=== PATIENT | male | born 1960 | race Caucasian/White ===

== ENCOUNTER → 2017-05-07 15:36 | Outpatient (CLI) | payer OTHER, SELFPAY ==
[2017-05-07 16:51] LABS: Anion Gap 8 (5-15); BUN 12 mg/dL (7-18); BUN/Creat Ratio 10.8 RATIO (10-20); Calcium,Total 8.4 mg/dL (8.5-10.1); Chloride 107 mmol/L (98-107); Creatinine, Serum 1.11 mg/dL (0.70-1.30); EST Glomerular Filtration Rate 73 mL/min (>60); Est Glom Filt Rate - Afr Amer 88 mL/min (>60); Glucose 93 mg/dL (74-106); Sodium Level 141 mmol/L (136-145)
== END ==
PROVIDERS: Family Provider Family Medicine Geriatric Medicine; PCP Family Medicine Geriatric Medicine; Visit Provider Nurse Practitioner Acute Care
DX: R59.0 Localized enlarged lymph nodes (principal)
CPT/HCPCS: 36415; 80048

== ENCOUNTER → 2017-05-09 14:14 | Outpatient (CLI) | payer OTHER, SELFPAY ==
[2017-04-18 14:07] VITALS: BP 132/83; BMI 28.8
--- NOTE | 2017-05-09 14:15 | CT_ITS ---
STUDY: CT CHEST WITH CONTRAST REASON FOR EXAM: Male, 56 years old. Short of breath and left-sided chest pressure. Follow-up of pulmonary nodules. RADIATION DOSAGE (If Supplied By Facility): CTDIvol = ( 14.02 ) mGy, DLP = ( 500.35 ) mGycm TECHNIQUE: Transaxial imaging was performed following intravenous administration of 100 ml of Isovue 250 contrast material. Multiplanar coronal and sagittal images were reformatted. Individualized dose optimization techniques were used for this CT. COMPARISON: Prior chest CT exam of November 18, 2016, August 22, 2016 and April 04, 2016. FINDINGS: The lingular nodule measures 14 x 12 mm on axial image 73 series 4 appearing to be only slightly larger on direct [id number] comparison. Also appears increased in size on coronal and sagittal there is somewhat more lung opacification peripheral to the nodule. Imaging and more rounded. There is a persistent area of volume loss or retraction in the anterior right lower lobe and persistent chronic or atelectatic changes of the dependent right lower lobe and to a lesser extent the dependent left lower lobe. Small focal area of linear scarring in the anterior left lower lobe. Bullous emphysematous changes of the left lung apex. Negative for substantial pleural effusion. Normal heart and pericardium. Normal mediastinum. A left hilar lymph node has not changed significantly. Normal enhanced pulmonary arteries. Normal aorta arch and descending thoracic aorta. Mild degenerative changes of the thoracic spine. Prior left adrenal nodule not completely included in the [id number]. CT/Chest WITH Contrast IMPRESSION: 14 x 12 mm nodule of the lingula has modestly increased in size since the prior exam of November 18, 2016. There is a more remarkable increase in size since the initial exam of September 02, 2016. There also appears to be more distal/peripheral parenchymal change related to the nodule which is occurring in an area of retraction and distortion of the fissures. Persistent area of linear type atelectatic change in the anterior right lower lobe and to a lesser extent the anterior left lower lobe. Increased posterior atelectatic changes. Negative for pleural effusion. Stable left hilar lymph node. Stable minimal lymph nodes of the aortopulmonary window and middle mediastinum. The patient's prior identified left adrenal nodule is not completely included in the [id number] on this exam. Electronically Signed: Mi Degroot MD at 19:14 EST , Service support ,
== END ==
PROVIDERS: Family Provider Family Medicine Geriatric Medicine; PCP Family Medicine Geriatric Medicine; Visit Provider Nurse Practitioner Acute Care
DX: R91.1 Solitary pulmonary nodule (principal); R06.02 Shortness of breath
CPT/HCPCS: 71260; Q9967

== ENCOUNTER → 2017-05-19 15:56 | Outpatient (CLI) | payer OTHER, SELFPAY ==
[2017-05-19 16:59] LABS: Absolute Lymphocyte Count 2.11 X10^3/ul (0.83-4.51); Absolute Neutrophil Count 4.4 X10^3/uL (2.0-7.7); Basophil# 0.03 X10^3/uL; Basophil% 0.4 % (0-1); Eosinophil# 0.24 X10^3/uL; Eosinophils% 3.2 % (0-5); Hematocrit 44.3 % (40-54); Hemoglobin 14.1 g/dl (13.0-16.5); Lymphocyte # 2.11 X10^3/ul (4.0); Lymphocyte % 27.9 % (19-41); Mean Corp Hgb Conc 31.8 g/gl (32-36); Mean Corpuscular Hgb 28.8 pg (27.0-32.0); Mean Corpuscular Volume 90.4 fL (80-94); Monocyte# 0.79 X10^3/uL; Monocyte% 10.5 % (0-10); Neutrophil # 4.37 X10^3/uL (2.7-7.7); Neutrophil % 57.9 % (47-70); Platelet Count 241 K/mm3 (150-450); RBC Distribution Width CV 14.7 % (11.6-14.6); RBC Distribution Width SD 48.4 fl (35.1-43.9); White Blood Count 7.6 K/mm3 (4.4-11.0)
[2017-05-19 17:08] LABS: POSITIVE COUNT NO; POSITIVE DIFFERENTIAL NO; POSITIVE MORPHOLOGY NO
[2017-05-19 17:11] LABS: International Normalized Ratio 0.9; Prothrombin Time (Protime)PT. 12.6 SECONDS (11.7-14.9)
[2017-05-19 17:12] LABS: Partial Thromboplast Time 37.4 Seconds (24.1-36.2)
== END ==
PROVIDERS: Family Provider Family Medicine Geriatric Medicine; PCP Family Medicine Geriatric Medicine; Visit Provider Nurse Practitioner Acute Care
DX: R91.1 Solitary pulmonary nodule (principal); R05 Cough
CPT/HCPCS: 36415; 85025; 85610; 85730

== ENCOUNTER → 2017-05-23 08:02 | Outpatient (CLI) | payer OTHER, SELFPAY ==
--- NOTE | 2017-05-23 | ASPIGT_PTH ---
PATIENT: MONI CHATMAN LOC: [place] U#:[id number] AGE/SX: 64/M ROOM: RE05/23/[address]: RAFAT Echols : 1960 BED: DIS: SPEC #: [id number] RECD: 05/23/17 10:01 STATUS: RITIKA KEYUR #: [id number] SORAYA: 05/23/17 00:[address]: Rani Gray NP DEPT: SURGICAL PATHOLOGY RECD BY: Alphonso Taylor ENTERED: 05/23/17 10:01 SP TYPE: ASP RAD OTHR DR: Dr. Silvano Childers MD Tissues: Lung, NOS Procedures: FNA Specimen Adequacy Special Stain Group II Special Stain Group I Surgery Specimen Level IV Diff Quik Stain (control) Imprint (control) HEADER OPERATION: CT-guided left lung biopsy PRE-OP DIAGNOSIS: Lung mass TISSUE SUBMITTED: Left lung, lingula, CT-guided core biopsy MICROSCOPIC DIAGNOSIS Left lung, lingula, CT-guided core biopsy: Fragment of unremarkable lung parenchymal tissue with focal anthracotic pigment, negative for malignancy. NORRIS:ann 05/26/17 COMMENT The specimen is evaluated at the time of lung biopsy by Dr. Mallory. Immediate Evaluation = Negative for malignant cells. Correlation with clinical, radiologic findings and appropriate follow up are necessary. Case has been reviewed in consultation with Dr. Dowling who concurs with the above diagnosis. IDC:AM MICROSCOPIC DESCRIPTION Slides are reviewed. GROSS DESCRIPTION Received in fixative is one container labeled with the patient's name and designated left lung, CT-guided core biopsy. The specimen consists of two minute fragments of espinoza soft tissue measuring 0.2 x 0.1 x <0.1 cm. The entire specimen is submitted in one cassette. Three touch imprints are prepared at the time of core biopsy. / NORRIS:ann 05/23/17 TC:4 CPT: 87238, 08511
--- NOTE | 2017-05-23 08:04 | CT_ITS ---
PROCEDURE: CT GUIDED CORE NEEDLE BIOPSY OF A lingular LUNG LESION INDICATION: Male, 56 years old. Nodular density in the lingular segment of the left upper lobe. PHYSICIAN: Dr.Pedicelli RAMOS CONSENT: Written informed consent was obtained having explained the risks, benefits and alternatives in detail with the patient who accepted the risks and agreed to proceed. Laboratory review and clinical assessment was performed. CONSCIOUS SEDATION PROTOCOL: The Drugs used were: 2 mg Versed, IV., and 50 mcg Fentanyl, IV. The sedation time was: 15 minutes. Concentration was started 9:55 AM and terminated at 10:10 AM. The conscious sedation protocol was independently monitored by the department nurse. RADIATION DOSAGE (If Supplied By Facility): CTDIvol = ( 16.7 ) mGy, DLP = ( 619.15 ) mGycm Individualized dose optimization techniques were used for this CT. TECHNIQUE: The patient was placed in the supine position. A noncontrast CT was performed to localize the lesion in the . The skin surface was prepped and draped in a sterile fashion. 1% lidocaine was used for local anesthesia. Using CT guidance, a 19-gauge coaxial biopsy device was advanced to the periphery of the lesion. A total of 3 core specimens were obtained. The specimens were placed in a formalin solution. A post procedure CT demonstrated no adverse sequelae or pneumothorax. The patient tolerated the procedure well without adverse event. A negative biopsy does not exclude malignancy. Further imaging or clinical followup based on patient condition and degree of clinical suspicion for malignancy. Suggest rebiopsy, if biopsy results do not match with clinical scenario. CT/Biopsy/Inj or Needle Placement IMPRESSION: 1. CT directed core needle biopsy of the small nodule in the lingular segment of the left upper lobe using CT image guidance with image documentation as described. Pathology results are pending. 2. Conscious Sedation protocol utilized with independent monitoring. Electronically Signed: Armando Sheets MD at 9:42 EDT Tel [phone], Service support ,
[2017-05-23 08:13] VITALS: BP 137/81; PULSE 85; RESP 16; TEMP 37; O2SAT 98; BMI 28.6
--- NOTE | 2017-05-23 09:08 | RAD_ITS ---
STUDY: X-RAY CHEST REASON FOR EXAM: Male, 56 years old. The patient is status post lingular biopsy. TECHNIQUE: PA expiration and inspiration views. COMPARISON: None. FINDINGS: Immediate post left lung biopsy radiographs. There is no evidence of pneumothorax. Stable nodular density in the lingular segment of left upper lobe. RAD/Chest Insp/Exp 2 View IMPRESSION: Status post lingular biopsy. There is no evidence of pneumothorax. Electronically Signed: Armando Sheets MD at 9:56 EDT Tel [phone], Service support ,
[2017-05-23 11:33] VITALS: BP 126/78; PULSE 74; RESP 18; O2SAT 100
--- NOTE | 2017-05-23 12:00 | RAD_ITS ---
STUDY: X-RAY CHEST REASON FOR EXAM: Male, 56 years old. 2 hour post left lung biopsy radiograph. TECHNIQUE: PA inspiration expiration views. COMPARISON: Comparison is made with prior study done earlier today. FINDINGS: This is a 2 hour radiograph following a left lung biopsy. There is no evidence of pneumothorax. RAD/Chest Insp/Exp 2 View IMPRESSION: No evidence of pneumothorax on the 2 hour post left lung biopsy radiograph. Electronically Signed: Armando Sheets MD at 11:31 EDT Tel [phone], Service support ,
== END ==
PROVIDERS: Family Provider Family Medicine Geriatric Medicine; PCP Family Medicine Geriatric Medicine; Visit Provider Nurse Practitioner Acute Care
DX: R91.1 Solitary pulmonary nodule (principal)
CPT/HCPCS: 32405; 71046; 77012; 88172; 88305; 88312; 88313; 99156; A4216

== ENCOUNTER → 2017-06-24 06:47 | Outpatient (CLI) | payer OTHER, SELFPAY ==
--- NOTE | 2017-06-24 06:49 | ECHOCS_ITS ---
Reason For Study: DYSPNEA Procedure This was a 2D Doppler, Color Flow transthoracic echocardiogram. The exam was of adequate technical quality. Exam performed in department. Left Ventricle Normal LV size. Left ventricular systolic function is normal. The estimated ejection fraction is 65 %. No evidence for diastolic dysfunction. No regional wall motion abnormalities noted. Right Ventricle Normal RV size. Normal systolic function. Atria Normal left atrium. Normal right atrium. No doppler evidence for ASD. Mitral Valve There is no mitral annular calcification. Normal mitral valve. Tricuspid Valve Normal tricuspid valve. Trivial tricuspid valve insufficiency. Right ventricular systolic pressure estimated to be 20 mmHg. Aortic Valve Trisinus/trileaflet aortic valve. Normal aortic valve. Pulmonic Valve The pulmonic valve is not well visualized. Trivial pulmonic valve insufficiency. Great Vessels Normal sized aortic root. Pericardium/Pleural No pericardial effusion. MMode/2D Measurements & Calculations LVIDd: 4.4 cm IVSd: 0.68 cm Ao root diam: 3.4 cm LVIDs: 2.9 cm LVPWd: 0.95 cm RVDd: 2.7 cm FS: 34.5 % LAV(MOD-bp): 30.1 ml LA A4 area: 13.0 cm2 RA A4 area: 15.7 cm2 LAV(MOD-bp) Indexed: 13.7 ml/m2 LAV(MOD-sp2): 28.0 ml LAV(MOD-sp4): 29.6 ml Doppler Measurements & Calculations MV E max robert: 83.2 cm/sec Ao V2 max: 136.4 cm/sec LV V1 max: 131.5 cm/sec MV A max robert: 75.4 cm/sec Ao max P.5 mmHg LV V1 max P.9 mmHg MV E/A: 1.1 PA V2 max: 150.1 cm/sec TR max robert: 208.8 cm/sec TR max P.4 mmHg Interpretation Summary Left ventricular systolic function is normal. The estimated ejection fraction is 65 %. Trivial tricuspid valve insufficiency. Trivial pulmonic valve insufficiency. Right ventricular systolic pressure estimated to be 20 mmHg. Ordering Physician: Rani Gray Referring Physician: Doug Wilks Performed By: Aleyda Higuera, AARON, RVT
--- NOTE | 2017-06-24 09:57 | STRESSREP_ITS ---
Stress Test Report Date: 06/24/2017 Procedure: Pharmacologic stress nuclear imaging study Indications: Chest pain Consent: Per the patient Procedure: The patient underwent pharmacologic (Regadenoson) evaluation with a peak heart rate of 106 beats per minute (64 predicted maximal heart rate) and a peak blood pressure of 138/92 mmHg. The baseline ECG demonstrated normal sinus rhythm. The peak pharmacologic ECG demonstrated no obvious ECG changes. There were no cardiac dysrhythmias pretest, during pharmacologic infusion, or recovery. There was no complaint of chest discomfort during pharmacologic infusion or recovery. The examination was discontinued secondary to completion of protocol. Impression: 1. Pharmacologic (Regadenoson) evaluation 2. Peak pharmacologic ECG with no obvious ECG changes. 3. There were no cardiac dysrhythmias pretest, during pharmacologic infusion, or recovery 4. Nuclear images pending Myocardial perfusion imaging study: Technique: The patient was injected with 11.0 millicuries of technetium 99m Cardiolite and subsequently rest SPECT Cardiolite nuclear imaging was obtained in the horizontal long, vertical long, and short axis views. The patient underwent pharmacologic (Regadenoson) evaluation with a peak heart rate of 106 beats per minute (64 % percent predicted maximal heart rate) and a peak blood pressure of 138/92 mmHg. the patient was injected with 33.7 millicuries of technetium 99m Cardiolite and subsequently stress SPECT Cardiolite nuclear imaging was obtained in the horizontal long, vertical long, and short axis views. A gated Cardiolite study at peak stress was obtained. Interpretation: Rest and stress SPECT Cardiolite nuclear imaging status post realignment, normalization, and attenuation correction demonstrate myocardial perfusion appearing within normal limits. There is end systolic thickening and brightening. The gated Cardiolite study demonstrates myocardial thickening and inward wall motion. The reported LVEF is 82 %. Impression: 1. Rest and stress SPECT Cardiolite nuclear imaging demonstrate myocardial perfusion appearing within normal limits. 2. The gated Cardiolite study reports an LVEF of 82 %. This note was generated with Zadspace[employer] software. It may contain incorrect words, spelling, and punctuation that were not noted in checking the note before signing.
== END ==
PROVIDERS: Family Provider Family Medicine Geriatric Medicine; PCP Family Medicine Geriatric Medicine; Visit Provider Nurse Practitioner Family
DX: R07.89 Other chest pain (principal); R06.02 Shortness of breath
CPT/HCPCS: 78452; 93017; 93306; A9500; A4216; J2785

== ENCOUNTER → 2017-09-15 16:47 | Outpatient (CLI) | payer OTHER, SELFPAY ==
[2017-09-15 17:35] LABS: Absolute Lymphocyte Count 2.01 X10^3/ul (0.83-4.51); Absolute Neutrophil Count 5.2 X10^3/uL (2.0-7.7); Basophil# 0.03 X10^3/uL; Basophil% 0.4 % (0-1); Eosinophil# 0.14 X10^3/uL; Eosinophils% 1.7 % (0-5); Hematocrit 46.7 % (40-54); Hemoglobin 15.2 g/dl (13.0-16.5); Lymphocyte # 2.01 X10^3/ul (4.0); Lymphocyte % 24.7 % (19-41); Mean Corp Hgb Conc 32.5 g/gl (32-36); Mean Corpuscular Hgb 28.6 pg (27.0-32.0); Mean Corpuscular Volume 87.9 fL (80-94); Monocyte# 0.77 X10^3/uL; Monocyte% 9.5 % (0-10); Neutrophil # 5.17 X10^3/uL (2.7-7.7); Neutrophil % 63.5 % (47-70); Platelet Count 240 K/mm3 (150-450); RBC Distribution Width CV 14.2 % (11.6-14.6); RBC Distribution Width SD 45.6 fl (35.1-43.9); Red Blood Count 5.31 M/mm3 (4.6-6.2); White Blood Count 8.1 K/mm3 (4.4-11.0)
[2017-09-15 17:44] LABS: POSITIVE COUNT NO; POSITIVE DIFFERENTIAL NO; POSITIVE MORPHOLOGY NO
[2017-09-15 18:05] LABS: ALB/GLOB Ratio 0.9 RATIO (0.9-2.4); AST(SGOT) 18 U/L (15-37); Alanine Aminotransfer ALT/SGPT 32 U/L (16-61); Albumin, Serum 3.5 g/dL (3.2-5.0); Alkaline Phosphatase 84 U/L (45-117); Anion Gap 9 (5-15); BUN 11 mg/dL (7-18); BUN/Creat Ratio 9.6 RATIO (10-20); Calcium,Total 8.8 mg/dL (8.5-10.1); Chloride 103 mmol/L (98-107); Creatinine, Serum 1.15 mg/dL (0.70-1.30); EST Glomerular Filtration Rate 70 mL/min (>60); Est Glom Filt Rate - Afr Amer 84 mL/min (>60); Globulin 3.8 g/dL (2.2-4.2); Glucose 92 mg/dL (74-106); Protein, Total 7.3 g/dL (6.4-8.2); Sodium Level 138 mmol/L (136-145); Thyroid Stim Hormone (TSH) 2.16 uIU/mL (0.358-3.74)
[2017-09-15 19:03] LABS: HIV - WCH Non-Reactive (Nonreactive)
[2017-09-15 20:14] LABS: Chlamydia Trachomatis by PCR Negative (Negative); Neisserai gonorrhoeae by PCR Negative (Negative); Probe Check PASS; Sample Adequacy Control PASS; Specimen Processing Control PASS
== END ==
PROVIDERS: Family Provider Family Medicine Geriatric Medicine; PCP Family Medicine Geriatric Medicine; Visit Provider Family Medicine Geriatric Medicine
DX: A64 Unspecified sexually transmitted disease (principal); R53.83 Other fatigue; F52.8 Other sexual dysfunction not due to a substance or known physiological condition
CPT/HCPCS: 36415; 80053; 84403; 84443; 85025; 86703; 87491; 87591

== ENCOUNTER → 2017-09-23 15:07 | Outpatient (CLI) | payer OTHER, SELFPAY ==
--- NOTE | 2017-09-23 15:09 | CT_ITS ---
STUDY: CT CHEST WITH CONTRAST REASON FOR EXAM: Male, 56 years old. Nodule follow-up. Hypertension, treatment controlled. RADIATION DOSAGE (If Supplied By Facility): CTDIvol = ( 14.56 ) mGy, DLP = ( 559.96 ) mGycm TECHNIQUE: Transaxial 2.5 mm imaging was performed following intravenous administration of 100 ml of Isovue 300 contrast material. Multiplanar coronal and sagittal images were reformatted. Individualized dose optimization techniques were used for this CT. COMPARISON: CT chest 05/09/2017. 11/18/2016. 08/22/2016. 04/04/2016. FINDINGS: The distortion of the lingula with volume loss extending into a nodular spiculated type lesion which measures on current examination 1.6 x 1.6 cm image 75 series 4, previously on corresponding imaging 1.6 x 1.6 cm 05/09/2017, and on 11/18/2016 examination approximately 1.3 x 1.5 cm. This has a more spiculated appearance on the current and most recent examination in comparison to 08/22/2016 and 04/04/2016. There has been a change in the contour since 2017. Stable hyperinflation with mild bullous disease in the left greater than right apex, nonspecific compression of the basilar parenchyma with stable linear interstitial change in the right lower lobe superior segment. Several small nodular density without calcification along the anterior major fissure image 50 series 4 measuring 0.28 cm, and on 04/04/2016 and 0 point to 8 cm. There are no other pulmonary nodules or masses identified. Interval apical pleural thickening. Normal heart and pericardium. Normal mediastinum. Normal hilar regions. Normal enhanced pulmonary arteries. Normal aorta arch and descending thoracic aorta. There are multi-level degenerative changes of the spine. There are no osteolytic or blastic lesions. Low-attenuation of the liver. Left adrenal low-attenuation is incompletely imaged. CT/Chest WITH Contrast IMPRESSION: Spiculated distortion/mass in the lingula appears stable since the most recent examination, has changed in size and contour since 2016 examinations which may be due to ongoing scarring as there is an increased volume loss since 2017. However neoplastic etiology is not excluded on the films and therefore further follow-up examination is advised. Presumed scarring in the lung bases is nonspecific. Stable small nodule associated with the left major fissure. Mild emphysema. Incompletely imaged low-attenuation left adrenal nodule. Electronically Signed: Aishwarya Diaz MD at 6:19 EDT , Service support ,
== END ==
PROVIDERS: Family Provider Family Medicine Geriatric Medicine; PCP Family Medicine Geriatric Medicine; Visit Provider Internal Medicine Critical Care Medicine
DX: R91.1 Solitary pulmonary nodule (principal)
CPT/HCPCS: 71260; Q9967

== ENCOUNTER → 2017-10-03 16:58 | Outpatient (CLI) | payer OTHER, SELFPAY ==
--- NOTE | 2017-10-03 17:30 | MRI_ITS ---
STUDY: MRI RIGHT FOREFOOT WITHOUT CONTRAST REASON FOR EXAM: Male, 56 years old. Fracture first metatarsal TECHNIQUE: Standardized fat and water weighted pulse sequences were obtained in all 3 orthogonal planes. COMPARISON: None. FINDINGS: There is edema at the dorsal subcutaneous fat (image 14/40 short axis TII). There is mild soft tissue fullness at the plantar aspect of the metatarsal heads of the third web space (image 32/40 short axis TI). There is nondisplaced fracture at the base of the first metatarsal (image 35/56 long axis gradient echo, 8, 9, 10, 11/30 sagittal inversion recovery, T1). Normal metatarsophalangeal joint of the hallux. Normal tibial and fibular sesamoids, with normal sesamoids-first metatarsal articulations. Normal interphalangeal joint of the hallux. Normal proximal and distal phalanges of the great toe. Normal medial and lateral heads of the flexor hallucis brevis tendons. Normal flexor and extensor hallucis longus tendons. Normal second through fifth metatarsophalangeal (MTP) joints. Normal interphalangeal joints of the second through fifth toes. Normal proximal, middle and distal phalanges of the second through fifth toes. Normal flexor and extensor tendons of the second through fifth toes. Normal intrinsic muscles of the forefoot. MRI/Lower Ext/No Jt/w/o IMPRESSION: Nondisplaced fracture at the base of the first metatarsal Small Landin's neuroma, third web space Electronically Signed: Josef Rothman MD at 10:17 EDT Tel , Service support ,
== END ==
PROVIDERS: Family Provider Family Medicine Geriatric Medicine; PCP Family Medicine Geriatric Medicine
DX: S92.314A Nondisplaced fracture of first metatarsal bone, right foot, initial encounter for closed fracture (principal)
CPT/HCPCS: 73718

== ENCOUNTER → 2017-11-18 12:33 | Outpatient (CLI) | payer OTHER, SELFPAY ==
--- NOTE | 2017-11-19 10:31 | PFT ---
INTRODUCTION: The patient is a 57-year-old male that presents for pulmonary function studies secondary to a diagnosis of lung nodule. Respiratory therapy reports good patient effort. Bronchodilators were used during testing. INTERPRETATION: Forced expiration spirometry demonstrates no evidence of a large airways obstructive ventilatory defect. There was no significant bronchodilator response. Spirograms are of good quality and plateau normally. Body plethysmography was performed and reveals lung volumes to be within normal limits. Diffusing capacity by single breath CO is also within normal limits at 78% of predicted. When compared to previous pulmonary function studies dated September 2016, there is been symmetric reductions in the patient's FEV1 and FVC. Diffusing capacity has decreased by 19%. IMPRESSION: Although the patient's current pulmonary function studies still remain within normal limits, there has been reductions in the patient's FEV1 and DLCO since PFTs were last completed in September 2016.
== END ==
PROVIDERS: Family Provider Family Medicine Geriatric Medicine; PCP Family Medicine Geriatric Medicine; Visit Provider Internal Medicine Critical Care Medicine
DX: R91.1 Solitary pulmonary nodule (principal); F17.201 Nicotine dependence, unspecified, in remission
CPT/HCPCS: 94060; 94726; 94729

== ENCOUNTER → 2018-01-15 09:24 | Outpatient (CLI) | payer OTHER, SELFPAY ==
--- NOTE | 2018-01-15 09:28 | MRI_ITS ---
STUDY: MRI ABDOMEN WITH AND WITHOUT CONTRAST REASON FOR EXAM: Male, 57 years old. Left adrenal mass. TECHNIQUE: Standardized fat and water weighted pulse sequences were obtained in all 3 orthogonal planes post contrast administration. 10 ml of Gadavist contrast material was administered intravenously for the contrast portion of the examination. COMPARISON: Noncontrast low-dose CT lung screening dated 04/04/2016 FINDINGS: There is a well-circumscribed left adrenal mass in the medial limb measuring 3.6 x 3.6 cm. This is not changed since the prior chest CT. On the prior chest CT, internal Hounsfield unit is low with HU of 8. On today's imaging, clearly evident internal fat is noted on this exam with signal dropout on the in and out of phase sequences. Adrenal mass is compatible with lipid rich benign adrenal adenoma. There is a small exophytic T2 hyperintense and T1 hypointense left midpole renal cyst measuring 1 x 1.2 cm. Otherwise, the kidneys are within normal limits. Gross unremarkable gallbladder, spleen and pancreas. Visualized colon is within normal limits. Normal appearance of the visualized osseous structures. Liver is grossly within normal limits. There is slight liver signal dropout on the out of phase sequence suggesting early fatty infiltration. MRI/MRI Abd WITH and W/O Contrast IMPRESSION: 1. Well-circumscribed left adrenal mass with signal dropout demonstrating lipid rich benign adrenal adenoma. This was seen on exam from March 2016. 2. Exophytic and simple left renal cyst Electronically Signed: Klever Yang DO at 11:58 EST Tel , Service support ,
== END ==
PROVIDERS: Family Provider Family Medicine Geriatric Medicine; PCP Family Medicine Geriatric Medicine; Referring Provider Family Medicine Geriatric Medicine; Visit Provider Family Medicine Geriatric Medicine
DX: N28.9 Disorder of kidney and ureter, unspecified (principal)
CPT/HCPCS: 74183; A9585

== ENCOUNTER → 2018-04-06 15:43 | Outpatient (CLI) | payer OTHER, SELFPAY ==
[2018-03-17 14:44] VITALS: BMI 28.8
[2018-04-06 16:39] LABS: Absolute Lymphocyte Count 2.27 X10^3/ul (0.83-4.51); Absolute Neutrophil Count 4.5 X10^3/uL (2.0-7.7); Basophil# 0.03 X10^3/uL; Basophil% 0.4 % (0-1); Eosinophils% 2.6 % (0-5); Hematocrit 43.8 % (40-54); Hemoglobin 14.1 g/dl (13.0-16.5); Lymphocyte # 2.27 X10^3/ul (4.0); Mean Corp Hgb Conc 32.2 g/gl (32-36); Mean Corpuscular Hgb 28.6 pg (27.0-32.0); Mean Corpuscular Volume 88.8 fL (80-94); Mean Platelet Vol. 11.1 fl (6.2-12.0); Monocyte# 0.82 X10^3/uL; Monocyte% 10.5 % (0-10); Neutrophil # 4.51 X10^3/uL (2.7-7.7); Neutrophil % 57.4 % (47-70); Platelet Count 272 K/mm3 (150-450); RBC Distribution Width CV 14.9 % (11.6-14.6); RBC Distribution Width SD 48.3 fl (35.1-43.9); Red Blood Count 4.93 M/mm3 (4.6-6.2); White Blood Count 7.8 K/mm3 (4.4-11.0)
[2018-04-06 16:50] LABS: POSITIVE COUNT NO; POSITIVE DIFFERENTIAL NO; POSITIVE MORPHOLOGY NO
[2018-04-06 17:04] LABS: ALB/GLOB Ratio 0.9 RATIO (0.9-2.4); AST(SGOT) 20 U/L (15-37); Alanine Aminotransfer ALT/SGPT 39 U/L (16-61); Albumin, Serum 3.4 g/dL (3.2-5.0); Alkaline Phosphatase 70 U/L (45-117); Anion Gap 10 (5-15); BUN 18 mg/dL (7-18); BUN/Creat Ratio 13.2 RATIO (10-20); Calcium,Total 8.5 mg/dL (8.5-10.1); Chloride 105 mmol/L (98-107); Creatinine, Serum 1.36 mg/dL (0.70-1.30); EST Glomerular Filtration Rate 57 mL/min (>60); Est Glom Filt Rate - Afr Amer 69 mL/min (>60); Globulin 3.8 g/dL (2.2-4.2); Glucose 91 mg/dL (74-106); PSA,Total - Annual Screen 0.58 ng/mL (0.00-4.00); Protein, Total 7.2 g/dL (6.4-8.2); Sodium Level 140 mmol/L (136-145); Thyroid Stim Hormone (TSH) 2.81 uIU/mL (0.358-3.74)
== END ==
PROVIDERS: Family Provider Family Medicine Geriatric Medicine; PCP Family Medicine Geriatric Medicine; Visit Provider Family Medicine Geriatric Medicine
DX: I10 Essential (primary) hypertension (principal); F52.8 Other sexual dysfunction not due to a substance or known physiological condition; Z12.5 Encounter for screening for malignant neoplasm of prostate
CPT/HCPCS: 36415; 80053; 84153; 84403; 84443; 85025; G0103

== ENCOUNTER → 2018-09-15 12:41 | Outpatient (CLI) | payer OTHER, SELFPAY ==
[2018-03-17 14:44] VITALS: BMI 28.8
--- NOTE | 2018-09-15 13:30 | CT_ITS ---
STUDY: CT CHEST WITH CONTRAST REASON FOR EXAM: Male, 57 years old. Nodule f/u RADIATION DOSAGE (If Supplied By Facility): CTDIvol = ( 17.35 ) mGy, DLP = ( 767.07 ) mGycm TECHNIQUE: Transaxial imaging was performed following intravenous administration of 100 IV Isovue 300. Multiplanar coronal and sagittal images were reformatted. Individualized dose optimization techniques were used for this CT. COMPARISON: May 092017 CT chest with contrast, August 22, 2016 FINDINGS: Within the anterior aspect of the left lower lobe there is a sizable partially spiculated mass which has enlarged over time. August 22, 2016 it measured 0.8 x 1.1 cm. May 09, 2017 that measures 1.4 x 1.5 cm. On today's study it now measures 2.3 x 2.2 x 1.9 cm. Associated pleural thickening. Normal heart and pericardium. The aforementioned mass abuts the pericardium. There is an AP window lymph node measuring 7.7 mm stable since prior study and 5.4 mm stable since prior study. Normal hilar regions. Normal enhanced pulmonary arteries. Normal aorta arch and descending thoracic aorta. There are multi-level degenerative changes of the thoracic spine. The liver is borderline enlarged and fatty infiltrated. The liver is partially visualized on this study. There is a partially visualized mass in the left adrenal gland measuring 1.9 x 1.8 cm partially visualized on this study as the prior study showed a larger mass. There is a stable lymph node adjacent to the gastroesophageal junction. CT/Chest WITH Contrast IMPRESSION: There is a mass in the inferior aspect of the lingula that has doubled in size since prior study August 22, 2016 and has enlarged since May 09, 2017. This is a concerning finding for primary lung neoplasm. Potentially a slow-growing carcinoma could have this appearance. Recommend consideration for rebiopsy and PET scan.. Stable small mediastinal lymph nodes Partially visualized left adrenal mass. N.B. : The above information has been verbally conveyed by Charity John MD to Dr. Flako DO, on 09/15/2018 16:02:27 (ET). Electronically Signed: Charity John MD at 15:34 EDT Tel , Service support ,
--- NOTE | 2018-09-15 15:42 | PFTCOMP_ITS ---
COMPLETE PULMONARY FUNCTION TEST INTERPRETATION Brief HPI: Patient is a 57 year old male, currently under the care of Dr. Johnson, who presents to [facility] for complete pulmonary function tests secondary to diagnosis of dyspnea. Respiratory therapist reports good effort and reproducible results. Interpretation: Forced expiration spirometry shows no large airways obstructive ventilatory defect with an FEV1 of 85% predicted. There is no significant bronchodilator response by strict ATS criteria. Spirograms are of good quality and plateau normally. The respiratory flow volume loop shows a normal pattern. Lung volumes by body plethysmography show a normal total lung capacity at 6.9 L, 96% predicted. All other lung volumes are within normal limits. Diffusion capacity by carbon monoxide is normal at 83% predicted. The airway resistance is normal. Compared to previous pulmonary function tests from 11/18/2017, there is been a significant reduction in FEV1 by 12%. Impression: These probably function tests are grossly within normal limits. There are some stigmata of possible reversible small airways disease.
== END ==
PROVIDERS: Family Provider Family Medicine Geriatric Medicine; PCP Family Medicine Geriatric Medicine; Referring Provider Internal Medicine Critical Care Medicine; Visit Provider Internal Medicine Critical Care Medicine
DX: R06.02 Shortness of breath (principal); F17.201 Nicotine dependence, unspecified, in remission; R91.1 Solitary pulmonary nodule
CPT/HCPCS: 71260; 94060; 94726; 94729; Q9967

== ENCOUNTER → 2018-09-21 07:39 | Outpatient (CLI) | payer OTHER, SELFPAY ==
[2018-09-17 13:34] VITALS: BMI 30.7
[2018-09-21] VITALS (10 sets, daily range): BP systolic 103–142; BP diastolic 67–93; PULSE 59–89; RESP 16–20; TEMP 37.1; O2SAT 92–100; BMI 30.7
--- NOTE | 2018-09-21 | ASPIGT_PTH ---
PATIENT: MONI CHATMAN LOC: CT U#:[id number] AGE/SX: 64/M ROOM: RE09/21/[address]: Dr. Mynor Johnson DO : 1960 BED: DIS: SPEC #: [id number] RECD: 09/21/18 10:00 STATUS: RITIKA KEYUR #: [id number] SORAYA: 09/21/18 00:[address]: Mynor Johnson DEPT: SURGICAL PATHOLOGY RECD BY: Roseanna Kimbrough ENTERED: 09/21/18 10:23 SP TYPE: ASP RAD OTHR DR: Dr. Silvano Childers MD Tissues: Lung, NOS Procedures: FNA Specimen Adequacy Special Stain Group II Surgery Specimen Level IV Imprint (control) HEADER OPERATION: CT guided left lung biopsy PRE-OP DIAGNOSIS: Lung mass TISSUE SUBMITTED: Lung mass, CT guided core biopsy 20 gauge x4 MICROSCOPIC DI[address]NOSIS CT-guided needle core biopsy, left lung mass: Fragments of unremarkable lung parenchyma with focal anthracotic pigment. No evidence of malignancy. See comment. AM:ann 09/22/18 COMMENT The specimen is evaluated at the time of biopsy by Dr. Mallory. Immediate Evaluation: Set #1 - Rare atypical cells noted. Set #2 - Negative for malignant cells. Very rare atypical epithelial cells are noted in the smears made at time of biopsy. Clinical correlation is suggested. Reference is made to the patient's previous left lung, lingula, CT-guided core biopsy from 05/26/17 ([id number]) which was negative for malignant cells. Case has been reviewed in consultation with Dr. Mallory who concurs with the above diagnosis. IDC:NORRIS MICROSCOPIC DESCRIPTION Slides are reviewed. GROSS DESCRIPTION Received in fixative is one container labeled with the patient's name and designated left lung biopsy. The specimen consists of multiple minute fragments of espinoza soft tissue that in aggregate measure 1 x 0.1 x <0.1 cm. The specimen is totally submitted in one cassette. Two touch imprints were prepared at the time of procedure. / NORRIS:ann 09/21/18 TC:5 CPT: 27225, 87967, 93930
--- NOTE | 2018-09-21 07:43 | CT_ITS ---
PROCEDURE: CT GUIDED CORE NEEDLE BIOPSY OF A lingular LUNG LESION INDICATION: Male, 57 years old. Lingular lung nodule. PHYSICIAN: Dr. Sheets. [place] CONSENT: Written informed consent was obtained having explained the risks, benefits and alternatives in detail with the patient who accepted the risks and agreed to proceed. Laboratory review and clinical assessment was performed. CONSCIOUS SEDATION PROTOCOL: The Drugs used were: 2 mg Versed, IV., and 50 mcg Fentanyl, IV. The sedation time was: 30 minutes. Conscious sedation was started on 9:21 AM and terminated at 9:51 AM. The conscious sedation protocol was independently monitored. RADIATION DOSAGE (If Supplied By Facility): CTDIvol = ( 22 ) mGy, DLP = ( 6 1990.84 ) mGycm Individualized dose optimization techniques were used for this CT. TECHNIQUE: The patient was placed in the supine position. A noncontrast CT was performed to localize the lesion in the lingular segment of the left upper lobe . The skin surface was prepped and draped in a sterile fashion. 1% lidocaine was used for local anesthesia. Using CT guidance, a 20-gauge coaxial biopsy device was advanced to the periphery of the lesion. A total of 3 core specimens were obtained. The specimens were placed in a formalin solution. A post procedure CT demonstrated no adverse sequelae or pneumothorax. The patient tolerated the procedure well without adverse event. A negative biopsy does not exclude malignancy. Further imaging or clinical followup based on patient condition and degree of clinical suspicion for malignancy. Suggest rebiopsy, if biopsy results do not match with clinical scenario. CT/Biopsy/Inj or Needle Placement IMPRESSION: 1. CT directed core needle biopsy of the lingular nodule using CT image guidance with image documentation as described. Pathology results are pending. 2. Conscious Sedation protocol utilized with independent monitoring. Electronically Signed: Armando Sheets, at 11:29 EDT , Service support ,
[2018-09-21 07:53] LABS: Hematocrit 46.6 % (40-54); Hemoglobin 15.5 g/dl (13.0-16.5); Mean Corp Hgb Conc 33.3 g/gl (32-36); Mean Corpuscular Hgb 29.5 pg (27.0-32.0); Mean Corpuscular Volume 88.8 fL (80-94); Platelet Count 245 K/mm3 (150-450); RBC Distribution Width CV 14.7 % (11.6-14.6); Red Blood Count 5.25 M/mm3 (4.6-6.2); Scan Indicated on CBC? Y/N NO; White Blood Count 6.9 K/mm3 (4.4-11.0)
[2018-09-21 08:16] LABS: Prothrombin Time (Protime)PT. 12.7 SECONDS (11.7-14.9)
[2018-09-21] MEDS: 0.9% Saline Lock 10 ML Syringe IV (08:45)
[2018-09-21] MEDS: fentaNYL 100 MCG/2 ML Ampul IV (09:21)
[2018-09-21] MEDS: Midazolam 2 MG/2 ML Syringe IV (09:21)
--- NOTE | 2018-09-21 10:14 | RAD_ITS ---
STUDY: X-RAY CHEST REASON FOR EXAM: Male, 57 years old. Post biopsy study. TECHNIQUE: AP inspiration and expiration views. COMPARISON: Comparison is made with prior study dated May 23, 2017. FINDINGS: The patient is status post left lung biopsy. There is no evidence of pneumothorax. RAD/Chest Insp/Exp 2 View IMPRESSION: No evidence of pneumothorax on the immediate post left lung biopsy radiographs. Electronically Signed: Armando Sheets, at 11:09 EDT , Service support ,
--- NOTE | 2018-09-21 11:30 | RAD_ITS ---
STUDY: X-RAY CHEST REASON FOR EXAM: Male, 57 years old. Hour post left lung biopsy. TECHNIQUE: AP inspiration and expiration views. COMPARISON: Comparison is made with prior study done earlier today. FINDINGS: The patient is status post left lung biopsy. There is no evidence of pneumothorax. RAD/Chest Insp/Exp 2 View IMPRESSION: No evidence of pneumothorax following the left lung biopsy on the 2 hour examination. Electronically Signed: Armando Sheets, at 8:06 EDT , Service support ,
== END ==
PROVIDERS: Family Provider Family Medicine Geriatric Medicine; PCP Family Medicine Geriatric Medicine; Referring Provider Internal Medicine Critical Care Medicine; Visit Provider Internal Medicine Critical Care Medicine
DX: R91.1 Solitary pulmonary nodule (principal); I10 Essential (primary) hypertension; K21.9 Gastro-esophageal reflux disease without esophagitis; Z79.899 Other long term (current) drug therapy; Z87.891 Personal history of nicotine dependence
CPT/HCPCS: 32405; 36415; 71046; 77012; 85027; 85610; 88172; 88305; 88313; 99156; 99157; J7040; A4216

== ENCOUNTER → 2019-01-06 14:09 | Outpatient (CLI) | payer OTHER, SELFPAY ==
[2019-01-06 08:53] VITALS: BMI 30.2
[2019-01-06 14:54] LABS: Hematocrit 43.6 % (40-54); Hemoglobin 14.1 g/dL (13.0-16.5); Mean Corp Hgb Conc 32.3 g/dL (32-36); Mean Corpuscular Hgb 29.4 pg (27.0-32.0); Mean Corpuscular Volume 90.8 fL (80-94); Mean Platelet Vol. 10.5 fl (6.2-12.0); Platelet Count 213 K/mm3 (150-450); RBC Distribution Width CV 17.2 % (11.6-14.6); RBC Distribution Width SD 55.9 fl (35.1-43.9); White Blood Count 9.2 K/mm3 (4.4-11.0)
[2019-01-06 15:28] LABS: D-Dimer Quantitative (DVT/PE) 1.01 FEU/ug/m (0.27-0.49)
== END ==
PROVIDERS: Family Provider Family Medicine Geriatric Medicine; PCP Family Medicine Geriatric Medicine; Referring Provider Nurse Practitioner Acute Care; Visit Provider Nurse Practitioner Acute Care
DX: R06.02 Shortness of breath (principal)
CPT/HCPCS: 36415; 84484; 85027; 85379

== ENCOUNTER → 2019-01-06 16:43 | Outpatient (CLI) | payer OTHER, SELFPAY ==
[2019-01-06 08:53] VITALS: BMI 30.2
--- NOTE | 2019-01-06 16:45 | CT_ITS ---
STUDY: CTA CHEST REASON FOR EXAM: Male, 58 years old. History of lung cancer with elevated d-dimer and concern for pulmonary embolism. RADIATION DOSAGE (If Supplied By Facility): CTDIvol = ( 11.23 ) mGy, DLP = ( 548.43 ) mGycm TECHNIQUE: The examination was performed with the intravenous administration of IV Isovue 370 100ml. Post-processing of the angiographic images was performed, with multiplanar reformation and 3D reconstruction. Individualized dose optimization techniques were used for this CT. COMPARISON: September 15, 2018. FINDINGS: There is limited enhancement of the main pulmonary artery and right and left pulmonary arteries. There is limited enhancement of the bilateral peripheral pulmonary arteries. There is no demonstrated large central pulmonary embolism. Normal thoracic aorta and visualized great vessels. There is no demonstrated aortic dissection. Normal heart and pericardium. Normal mediastinum. Normal hilar regions. Normal visualized trachea and bronchi. The lungs are well expanded. Within the a posterior right lower lobe fissure there is a linear soft tissue density which previously measured 3.6 mm in thickness and now measures up to 7.6 mm thickness. This is best seen on today's examination series 2 image 132. The remainder of the lungs are clear. Normal pleura. Normal chest wall structures. Normal osseous structures. 3.7 cm left adrenal mass appears similar compared to prior. CT/CTA Chest W/WO Contrast IMPRESSION: Limited evaluation for pulmonary embolism especially in the segmental and subsegmental pulmonary arteries. No large central pulmonary embolism is identified. Increased conspicuity and size of a soft tissue density within a posterior right lower lobe fissure is concerning for malignancy as clinically indicated. Electronically Signed: Patrick Sandoval, at 18:44 EDT Tel , Service support ,
[2019-01-06 17:01] LABS: CREATININE FINGERSTICK 1.6 mg/dL (0.70-1.30)
== END ==
PROVIDERS: Family Provider Family Medicine Geriatric Medicine; PCP Family Medicine Geriatric Medicine; Referring Provider Nurse Practitioner Acute Care; Visit Provider Nurse Practitioner Acute Care
DX: R79.89 Other specified abnormal findings of blood chemistry (principal)
CPT/HCPCS: 71275; Q9967

== ENCOUNTER → 2019-04-13 13:30 | Outpatient (CLI) | payer OTHER, SELFPAY ==
[2019-01-06 08:53] VITALS: BMI 30.2
[2019-04-13 17:46] LABS: Absolute Lymphocyte Count 2.28 X10^3/uL (0.83-4.51); Absolute Neutrophil Count 4.2 X10^3/uL (2.0-7.7); Basophil# 0.05 X10^3/uL; Basophil% 0.7 % (0-1); Eosinophil# 0.17 X10^3/uL; Eosinophils% 2.3 % (0-5); Hemoglobin 14.2 g/dL (13.0-16.5); Lymphocyte # 2.28 X10^3/ul (4.0); Lymphocyte % 30.5 % (19-41); Mean Corp Hgb Conc 32.3 g/dL (32-36); Mean Corpuscular Hgb 29.6 pg (27.0-32.0); Mean Corpuscular Volume 91.9 fL (80-94); Mean Platelet Vol. 11.8 fl (6.2-12.0); Monocyte# 0.75 X10^3/uL; NRBC Flagged by Analyzer 0 % (0-5); Neutrophil # 4.22 X10^3/uL (2.7-7.7); Neutrophil % 56.4 % (47-70); Platelet Count 224 K/mm3 (150-450); RBC Distribution Width CV 12.5 % (11.6-14.6); RBC Distribution Width SD 42.1 fl (35.1-43.9); Red Blood Count 4.79 M/mm3 (4.6-6.2); White Blood Count 7.5 K/mm3 (4.4-11.0)
[2019-04-13 17:52] LABS: ALB/GLOB Ratio 0.9 RATIO (0.9-2.4); AST(SGOT) 27 U/L (15-37); Alanine Aminotransfer ALT/SGPT 43 U/L (16-61); Albumin, Serum 3.5 g/dL (3.2-5.0); Alkaline Phosphatase 94 U/L (45-117); Anion Gap 8 (5-15); BUN 22 mg/dL (7-18); BUN/Creat Ratio 14.6 RATIO (10-20); Calcium,Total 8.7 mg/dL (8.5-10.1); Chloride 108 mmol/L (98-107); Creatinine, Serum 1.51 mg/dL (0.70-1.30); EST Glomerular Filtration Rate 51 mL/min (>60); Est Glom Filt Rate - Afr Amer 61 mL/min (>60); Globulin 4.1 g/dL (2.2-4.2); Glucose 96 mg/dL (74-106); PSA,Total - Annual Screen 0.68 ng/mL (0.00-4.00); Potassium 4.1 mmol/L (3.5-5.1); Protein, Total 7.6 g/dL (6.4-8.2); Sodium Level 138 mmol/L (136-145); Thyroid Stim Hormone (TSH) 1.92 uIU/mL (0.358-3.74); Uric Acid 7.8 mg/dL (3.5-7.2)
== END ==
PROVIDERS: PCP Family Medicine Geriatric Medicine; Visit Provider Family Medicine Geriatric Medicine
DX: I10 Essential (primary) hypertension (principal); M10.9 Gout, unspecified; F52.8 Other sexual dysfunction not due to a substance or known physiological condition; Z12.5 Encounter for screening for malignant neoplasm of prostate
CPT/HCPCS: 36415; 80053; 84153; 84403; 84443; 84550; 85025; G0103

== ENCOUNTER → 2019-10-12 13:48 | Outpatient (CLI) | payer OTHER, SELFPAY ==
[2019-01-06 08:53] VITALS: BMI 30.2
[2019-10-12 15:38] LABS: Absolute Lymphocyte Count 2.52 X10^3/uL (0.83-4.51); Absolute Neutrophil Count 9.2 X10^3/uL (2.0-7.7); Basophil# 0.03 X10^3/uL; Basophil% 0.2 % (0-1); Eosinophil# 0.01 X10^3/uL; Eosinophils% 0.1 % (0-5); Hematocrit 44.9 % (40-54); Hemoglobin 14.3 g/dL (13.0-16.5); Lymphocyte # 2.52 X10^3/ul (4.0); Lymphocyte % 19.8 % (19-41); Mean Corp Hgb Conc 31.8 g/dL (32-36); Mean Corpuscular Hgb 29.1 pg (27.0-32.0); Mean Corpuscular Volume 91.4 fL (80-94); Mean Platelet Vol. 11.7 fl (6.2-12.0); Monocyte# 0.85 X10^3/uL; Monocyte% 6.7 % (0-10); NRBC Flagged by Analyzer 0 % (0-5); Neutrophil % 72.4 % (47-70); Platelet Count 313 K/mm3 (150-450); RBC Distribution Width CV 15.1 % (11.6-14.6); Red Blood Count 4.91 M/mm3 (4.6-6.2); White Blood Count 12.7 K/mm3 (4.4-11.0)
[2019-10-12 16:02] LABS: AST(SGOT) 16 U/L (15-37); Alanine Aminotransfer ALT/SGPT 34 U/L (16-61); Albumin, Serum 3.5 g/dL (3.2-5.0); Alkaline Phosphatase 88 U/L (45-117); Anion Gap 6 (5-15); BUN 26 mg/dL (7-18); BUN/Creat Ratio 18.1 RATIO (10-20); Calcium,Total 8.5 mg/dL (8.5-10.1); Chloride 106 mmol/L (98-107); Creatinine, Serum 1.44 mg/dL (0.70-1.30); EST Glomerular Filtration Rate 53 mL/min (>60); Est Glom Filt Rate - Afr Amer 65 mL/min (>60); Globulin 3.6 g/dL (2.2-4.2); Glucose 134 mg/dL (74-106); Potassium 4.2 mmol/L (3.5-5.1); Protein, Total 7.1 g/dL (6.4-8.2); Sodium Level 139 mmol/L (136-145); Thyroid Stim Hormone (TSH) 1.54 uIU/mL (0.358-3.74); Uric Acid 7.5 mg/dL (3.5-7.2)
== END ==
PROVIDERS: PCP Family Medicine Geriatric Medicine; Visit Provider Family Medicine Geriatric Medicine
DX: I10 Essential (primary) hypertension (principal); M10.9 Gout, unspecified; F52.8 Other sexual dysfunction not due to a substance or known physiological condition
CPT/HCPCS: 36415; 80053; 84403; 84443; 84550; 85025

== ENCOUNTER → 2019-11-08 12:44 | Outpatient (CLI) | payer OTHER, SELFPAY ==
[2019-01-06 08:53] VITALS: BMI 30.2
--- NOTE | 2019-11-08 12:47 | ECHOD_ITS ---
Reason For Study: DYSPNEA Procedure This was a 2D Doppler, Color Flow transthoracic echocardiogram. Exam performed in department. Left Ventricle Normal LV size. The estimated ejection fraction is 60 %. Stage 2 diastolic dysfunction. No regional wall motion abnormalities noted. Right Ventricle Normal RV size. Normal systolic function. Atria Normal left atrium. Normal right atrium. Mitral Valve Normal mitral valve. Tricuspid Valve Normal tricuspid valve. Mild (1+) tricuspid valve insufficiency. Pulmonary artery systolic pressure is 27 mmHg. Aortic Valve Normal aortic valve. Pulmonic Valve Normal pulmonic valve. Great Vessels Normal aortic root. The pulmonary artery is normal size. Normal inferior vena cava. Pericardium/Pleural No pericardial effusion. MMode/2D Measurements & Calculations LVIDd: 4.6 cm IVSd: 0.82 cm Ao root diam: 3.6 cm LVIDs: 3.1 cm LVPWd: 0.81 cm RVDd: 4.0 cm FS: 33.6 % LAV(MOD-bp): 58.9 ml LA A4 area: 19.8 cm2 LA dimension(2D): 4.2 cm LAV(MOD-bp) Indexed: 25.8 ml/m2 LAV(MOD-sp2): 59.9 ml LAV(MOD-sp4): 58.8 ml RA A4 area: 15.1 cm2 Time Measurements MV dec time: 0.17 sec Doppler Measurements & Calculations MV E max onesimo: 97.5 cm/sec Lat Peak E' Onesimo: 8.5 cm/sec Med Peak E' Onesimo: 6.3 cm/sec MV A max onesimo: 82.7 cm/sec E/E' lat: 11.4 E/E' med: 15.4 MV E/A: 1.2 Ao V2 max: 133.0 cm/sec LV V1 max: 93.4 cm/sec PA V2 max: 97.1 cm/sec Ao max P.1 mmHg LV V1 max P.5 mmHg TR max onesimo: 235.9 cm/sec TR max P.5 mmHg Interpretation Summary Normal LV size. The estimated ejection fraction is 60 %. Stage 2 diastolic dysfunction. Mild (1+) tricuspid valve insufficiency. Pulmonary artery systolic pressure is 27 mmHg. Ordering Physician: Demetri Pelletier Referring Physician: MARCI DUKES Performed By: Aleyda Higuera RDCS, RVT
--- NOTE | 2019-11-08 13:20 | CT_ITS ---
STUDY: CTA CHEST REASON FOR EXAM: Male, 59 years old. PT STATED INCREASED SHORTNESS, HX LUNG CA WITH LOBECTOMY RADIATION DOSAGE (If Supplied By Facility): CTDIvol = ( 13.43 ) mGy, DLP = ( 538.09 ) mGycm TECHNIQUE: The examination was performed with the intravenous administration of IV 100mL Isovue-370. Post-processing of the angiographic images was performed, with multiplanar reformation and 3D reconstruction. Individualized dose optimization techniques were used for this CT. COMPARISON: Comparison is made with prior examination dated 01/06/2019. FINDINGS: Normal enhancement of the main pulmonary artery and right and left pulmonary arteries. Normal enhancement of the bilateral peripheral pulmonary arteries. There is no demonstrated pulmonary embolism. Normal thoracic aorta and visualized great vessels. There is no demonstrated aortic dissection. Normal heart and pericardium. There are visualized mediastinal lymph nodes, which are within normal size limits, and with normal morphology. Normal hilar regions. Normal visualized trachea and bronchi. The patient is status post left lower lobectomy. Minimal postoperative scarring is seen at the left lung base. Stable linear scarring in the right lower lobe fissure. This is unchanged. Normal pleura. Normal chest wall structures. Normal osseous structures. There is a 3.2 cm x 3.4 cm fat-containing left adrenal mass. This is unchanged. Focal calcification is seen within it. CT/CTA Chest W/WO Contrast IMPRESSION: Stable examination. Electronically Signed: Armando Sheets, at 14:16 EDT , Service support ,
== END ==
PROVIDERS: PCP Family Medicine Geriatric Medicine; Referring Provider Internal Medicine Pulmonary Disease; Visit Provider Internal Medicine Pulmonary Disease
DX: R06.00 Dyspnea, unspecified (principal)
CPT/HCPCS: 71275; 93306; Q9967

== ENCOUNTER → 2019-12-09 15:42 | Outpatient (CLI) | payer OTHER, SELFPAY ==
[2019-01-06 08:53] VITALS: BMI 30.2
--- NOTE | 2019-12-09 15:50 | RAD_ITS ---
STUDY: X-RAY CHEST REASON FOR EXAM: Male, 59 years old. SOB x1 WEEK, COUGH STARTING TODAY -- SMOKER, HX OF EMPHYSEMA AND COPD -- HX OF LEFT LUNG SURGERY 1 YR AGO TECHNIQUE: 2 views COMPARISON: Chest CT exam of 11/08/2019 FINDINGS: Stable post operative changes of the left hemithorax status post lingular resection. Next field the right lung appears expanded and clear. Negative for pleural effusion. Normal size heart. Normal mediastinum and angelica. Normal visualized pulmonary arteries. Normal visualized aortic arch and descending thoracic aorta. Normal visualized thoracic spine. Normal visualized ribs, clavicles, and shoulders. There is no demonstrated abnormality of the visualized soft tissue structures of the upper abdomen. RAD/Chest PA and Lateral IMPRESSION: No acute cardiopulmonary findings or substantial changes. Negative for acute infiltrates, atelectasis, pleural effusion or cardiomegaly. Stable postoperative changes of the left hemithorax status post lingular resection. Electronically Signed: Mi Degroot MD at 16:13 EDT , Service support ,
== END ==
LOC: RAD 15:43
PROVIDERS: PCP Family Medicine Geriatric Medicine; Referring Provider Family Medicine Geriatric Medicine; Visit Provider Family Medicine Geriatric Medicine
DX: R06.02 Shortness of breath (principal)
CPT/HCPCS: 71046

== ENCOUNTER → 2020-01-13 17:24 | Outpatient (CLI) | payer OTHER, SELFPAY ==
[2019-01-06 08:53] VITALS: BMI 30.2
== END ==
PROVIDERS: PCP Family Medicine Geriatric Medicine; Referring Provider Family Medicine Geriatric Medicine; Visit Provider Family Medicine Geriatric Medicine
DX: R06.89 Other abnormalities of breathing (principal)
CPT/HCPCS: 87633; 87635; C9803; U0003

== ENCOUNTER → 2020-01-19 13:53 | Outpatient (CLI) | payer OTHER, SELFPAY ==
[2019-01-06 08:53] VITALS: BMI 30.2
--- NOTE | 2020-01-19 14:10 | RAD_ITS ---
STUDY: X-RAY CHEST REASON FOR EXAM: Male, 59 years old. REOCCURRING BRONCHITIS TECHNIQUE: PA and lateral views of the chest. COMPARISON: Comparison is made with prior study dated 12/09/2019. FINDINGS: Since prior study, there has been an increase in the small left pleural effusion with left basilar atelectasis and/or infiltrate. Stable mild increased linear markings at the right lung base. There is no demonstrated pleural abnormality. Normal size heart. Normal mediastinum and angelica. Normal visualized pulmonary arteries. Normal visualized aortic arch and descending thoracic aorta. Normal visualized thoracic spine. Normal visualized ribs, clavicles, and shoulders. There is no demonstrated abnormality of the visualized soft tissue structures of the upper abdomen. RAD/Chest PA and Lateral IMPRESSION: Slight increase in the small left pleural effusion with left basilar atelectasis and mild increased linear markings at the right lung base. Electronically Signed: Armando Sheets, at 15:50 EST , Service support ,
== END ==
PROVIDERS: PCP Family Medicine Geriatric Medicine; Referring Provider Family Medicine Geriatric Medicine; Visit Provider Family Medicine Geriatric Medicine
DX: E23.6 Other disorders of pituitary gland (principal); R09.1 Pleurisy; R06.89 Other abnormalities of breathing
CPT/HCPCS: 36415; 71046; 84403

== ENCOUNTER → 2020-02-02 13:58 | Outpatient (CLI) | payer OTHER, SELFPAY ==
[2019-01-06 08:53] VITALS: BMI 30.2
--- NOTE | 2020-02-02 14:20 | RAD_ITS ---
STUDY: X-RAY CHEST REASON FOR EXAM: Male, 59 years old. PNEUMONIA. LEFT LUNG REMOVED. TECHNIQUE: Frontal and lateral views COMPARISON: 01/19/2020 FINDINGS: The lungs are expanded. Left pleural effusion with basilar infiltrate/atelectasis similar to previous study. Normal size heart. Normal mediastinum and angelica. Normal visualized pulmonary arteries. Normal visualized aortic arch and descending thoracic aorta. Normal visualized thoracic spine. Normal visualized ribs, clavicles, and shoulders. There is no demonstrated abnormality of the visualized soft tissue structures of the upper abdomen. RAD/Chest PA and Lateral IMPRESSION: Left pleural effusion with basilar infiltrate/atelectasis similar to previous study. Electronically Signed: Henri Schmidt DO at 22:01 EST Tel [phone], Service support ,
== END ==
PROVIDERS: PCP Family Medicine Geriatric Medicine; Referring Provider Family Medicine Geriatric Medicine; Visit Provider Family Medicine Geriatric Medicine
DX: J18.9 Pneumonia, unspecified organism (principal)
CPT/HCPCS: 71046

== ENCOUNTER → 2020-04-17 15:14 | Outpatient (CLI) | payer OTHER, SELFPAY ==
[2019-01-06 08:53] VITALS: BMI 30.2
== END ==
PROVIDERS: PCP Family Medicine Geriatric Medicine; Referring Provider Family Medicine Geriatric Medicine; Visit Provider Family Medicine Geriatric Medicine
DX: R68.83 Chills (without fever) (principal)
CPT/HCPCS: 87633; 87635; C9803; U0005; U0003

== ENCOUNTER → 2020-04-21 11:44 | Outpatient (CLI) | payer OTHER, SELFPAY ==
[2019-01-06 08:53] VITALS: BMI 30.2
--- NOTE | 2020-04-21 13:05 | RAD_ITS ---
STUDY: X-RAY CHEST REASON FOR EXAM: Male, 59 years old. SOB, HX OF LEFT LOBECTOMY FOR LUNG CANCER -- HX OF PLEURAL EFFUSIONS AND CHF TECHNIQUE: Frontal and lateral views of the chest. COMPARISON: 02/02/2020 FINDINGS: There is a moderate sized left pleural effusion that has increased in size since the prior examination. There is a groundglass opacity throughout the left lung. Normal size heart. Normal mediastinum and angelica. Normal visualized pulmonary arteries. Normal visualized aortic arch and descending thoracic aorta. Normal visualized thoracic spine. Normal visualized ribs, clavicles, and shoulders. There is no demonstrated abnormality of the visualized soft tissue structures of the upper abdomen. RAD/Chest PA and Lateral IMPRESSION: Interval enlargement of left pleural effusion, cannot exclude associated left basilar atelectasis and/or pneumonia. Ground glass opacities within the left lung, may be secondary to underlying edema and/or an infectious process. Electronically Signed: Evie Goldstein MD at 18:36 EST Tel , Service support ,
== END ==
PROVIDERS: PCP Family Medicine Geriatric Medicine; Referring Provider Family Medicine Geriatric Medicine; Visit Provider Family Medicine Geriatric Medicine
DX: R06.02 Shortness of breath (principal); I10 Essential (primary) hypertension; M10.9 Gout, unspecified; F52.8 Other sexual dysfunction not due to a substance or known physiological condition; Z12.5 Encounter for screening for malignant neoplasm of prostate
CPT/HCPCS: 36415; 71046; 80053; 84153; 84403; 84443; 84550; 85025; G0103

== ENCOUNTER → 2020-04-25 12:58 | Outpatient (CLI) | payer OTHER, SELFPAY ==
[2019-01-06 08:53] VITALS: BMI 30.2
[2020-04-25 15:33] LABS: Prothrombin Time (Protime)PT. 12.6 SECONDS (11.7-14.9)
== END ==
PROVIDERS: PCP Family Medicine Geriatric Medicine; Referring Provider Family Medicine Geriatric Medicine; Visit Provider Family Medicine Geriatric Medicine
DX: J90 Pleural effusion, not elsewhere classified (principal)
CPT/HCPCS: 36415; 85610

== ENCOUNTER → 2020-04-26 13:53 | Outpatient (CLI) | payer OTHER, SELFPAY ==
[2019-01-06 08:53] VITALS: BMI 30.2
--- NOTE | 2020-04-26 | IMM_PTH ---
PATIENT: MONI CHATMAN LOC: [facility]#:[id number] AGE/SX: 64/M ROOM: RE04/26/[address]: Dr. Demetri Pelletier MD : 1960 BED: DIS: SPEC #: [id number] RECD: 04/28/20 14:01 STATUS: RITIKA REQ #: [id number] SORAYA: 04/26/20 00:[address]: Demetri Pelletier V DEPT: IMMUNOHISTOCHEMISTRY RECD BY: Trudi Draper ENTERED: 04/28/20 14:02 SP TYPE: IMMUNO OTHR DR: Dr. Silvano Childers MD Tissues: THORACIC FLUID Procedures: RCC (add) NAPSIN A (add) Pacheco Ret (add) CK20 (add) CK5-6 (add) CK7 (add) CK8 (add) MINER-2 (add) HEP PAR (add) MACRO (add) TTF1 (add) Vimentin (add) Pankeratin (initial) P40 (add) CDX2 (add) PSAP (add) PHYSICIAN & [address] [address] SPECIMEN INFORMATION: Tissue Source: Thoracentesis fluid Clinical Info: Pleural effusion Specimen Number: [id number] CPT code: 82324, 58739 x15 METHODOLOGY: Deparaffinized sections of prefer/formalin-fixed tissue or PAP/DQ stained slides are incubated with monoclonal/polyclonal antibodies/oligonucleotide probes. Localization is made via biotin free immunoperoxidase method. Appropriate controls are performed and reacted as expected. Results on target cell population are indicated in the following table: RESULTS: ANTIBODY / CLONE RESULT AE1-3 (AE1/AE3/PCK26) positive CK7 (OV-TL12/30) positive CK8 (22djkpO48) positive CK20 (KS20.8) negative MINER-2 (SP21) positive CDX2 (RTU1194D) positive Vimentin (V9) negative Macro (HAM-56) negative TTF-1 (8G7G3/1) positive Napsin A (Rabbit Polyclonal) positive HepPar (OCh1E5) negative RCC (PN-15) negative PSAP (PASE/4LJ) negative CALRET (polyclonal) negative CK5-6 (D5 & 1684) negative P40 (BC28) negative These tests were developed and their performance characteristics determined by [facility]. They may not have been cleared or approved by the U.S. Food and Drug Administration. The FDA has determined that such clearance or approval is not necessary. The above immunohistochemical/dualISH markers are ordered and reviewed by the Pathologist. INTERPRETATION: Thoracentesis fluid: Malignant cells derived from non-small cell carcinoma, favor adenocarcinoma, consistent with lung primary. SJ:ann 05/01/2020
--- NOTE | 2020-04-26 13:55 | US_ITS ---
PROCEDURE: ULTRASOUND GUIDED THORACENTESIS. DATE: 04/26/2020. INDICATION: Male, 59 years old. Left pleural effusion PHYSICIAN: Pulmonary physician PROCEDURE: The risks, benefits, and alternatives to the procedure were explained to the shouldn''t. The specific risks of bleeding, infection, and pneumothorax requiring chest tube insertion were discussed and accepted. Written informed consent was obtained. Ultrasonographic evaluation of the left lower pleural space was carried out. An adequate pocket was identified. The patient was placed in the sitting, upright position. The overlying skin was prepped and draped in sterile fashion. 1% lidocaine was administered subcutaneously for local anesthesia. Under ultrasound guidance, a 5 [place] Islander thoracentesis needle/catheter system was advanced into the left posterior lower pleural fluid collection. Approximately 560 mL of barry-colored fluid fluid was drained. The catheter was removed, and a sterile dressing was applied. A specimen was collected and sent to the laboratory for analysis, as requested by the referring clinician. The patient tolerated the procedure well. A chest x-ray was ordered. US/Thoracentesis W US IMPRESSION: Ultrasound-guided left thoracentesis. Electronically Signed: Armando Sheets MD at 15:29 EST , Service support ,
[2020-04-26 14:26] VITALS: BP 138/92; BP 148/76; BP 155/79; BP 157/70; BP 160/86; PULSE 56; PULSE 62; PULSE 64; PULSE 65; RESP 20; RESP 22; O2SAT 97; O2SAT 98
--- NOTE | 2020-04-26 14:40 | FLU_PTH ---
PATIENT: MONI CHATMAN LOC: [facility]#:[id number] AGE/SX: 64/M ROOM: RE04/26/[address]: Dr. Demetri Pelletier MD : 1960 BED: DIS: SPEC #: [id number] RECD: 04/26/20 15:10 STATUS: RITIKA KEYUR #: [id number] SORAYA: 04/26/20 14:[address]: Demetri Pelletier V DEPT: CYTOLOGY RECD BY: Janel Haywood ENTERED: 04/27/20 07:28 SP TYPE: Fluid OTHR DR: Dr. Silvano Childers MD Tissues: THORACIC FLUID Procedures: Special Stain Group II Surgery Specimen Level IV Cytospin Fluid HEADER OPERATION: Thoracentesis PRE-OP DIAGNOSIS: Pleural effusion TISSUE SUBMITTED: Thoracentesis fluid for cytology DIAGNOSIS CYTOLOGY Thoracentesis fluid for cytology (cytospin and cell block): Malignant cells present derived from non-small cell carcinoma, favor adenocarcinoma, consistent with lung primary. See comment. NORRIS:ann 04/28/2020 COMMENT Immunohistochemistry ([id number]) supports the above diagnosis. Please make reference to previous specimens ([id number]) left lung, lingual, CT-guided core biopsy with diagnosis of fragment of unremarkable lung parenchymal tissue with focal anthracotic pigment, negative for malignancy and ([id number]) CT-guided needle core biopsy, left lung mass with diagnosis of fragments of unremarkable lung parenchyma with focal anthracotic pigment. As per EMR, the patient has history of lung carcinoma status post lobectomy. Case has been reviewed in consultation with Dr. Dowling who concurs with the above diagnosis. IDC:AM CYTOLOGY STUDY Slides are reviewed. CYTOLOGY GROSS Received is 100 ml of barry cloudy fluid labeled with the patient's name and and designated per the requisition as thoracentesis. Submitted for cytology preparation including cell block. / ann 04/27/2020 TC:0 CPT: 11864, 21553
--- NOTE | 2020-04-26 14:50 | RAD_ITS ---
STUDY: X-RAY CHEST REASON FOR EXAM: Male, 59 years old. POST THORA TECHNIQUE: AP inspiration and expiration views COMPARISON: Comparison is made with prior study dated 04/21/2020. FINDINGS: The patient is status post left thoracentesis. There is no evidence of pneumothorax. Mild residual pleural-parenchymal changes are seen in the left hemithorax with loss of volume in the left hemithorax in comparison with prior left lobectomy. RAD/Chest Insp/Exp 2 View IMPRESSION: No pneumothorax seen on the post left thoracentesis radiographs. Electronically Signed: Armando Sheets MD at 15:31 EST , Service support ,
[2020-04-26 15:10] LABS: Cytology, Body Fluid / CSF SEE PATHOLOGY REPORT
[2020-04-26 15:58] LABS: LDH,Body Fluid 415 Units/l (Not Establ.)
== END ==
PROVIDERS: PCP Family Medicine Geriatric Medicine; Referring Provider Internal Medicine Pulmonary Disease; Visit Provider Internal Medicine Pulmonary Disease
DX: J90 Pleural effusion, not elsewhere classified (principal)
CPT/HCPCS: 32555; 71046; 83615; 87015; 87116; 87206; 88108; 88305; 88313; 88341; 88342

== ENCOUNTER → 2020-05-23 14:39 | Outpatient (CLI) | payer OTHER, SELFPAY ==
[2019-01-06 08:53] VITALS: BMI 30.2
--- NOTE | 2020-05-23 14:30 | PET_ITS ---
EXAMINATION: FDG PET/CT INDICATIONS: A 59-year-old male with reported history of carcinoma of the lung presenting for restaging examination. COMPARISON EXAMINATION: None available (Synopsis of FDG PET study report dated September 2018 only). INDEX LESION SIZE SUV INTERPRETATION Left lower lung-left lower lobe 31.6 x 49.3-mm (frame 198) 4.2 Fulfills quantitative criteria for viable neoplasm Left hemithorax pleural interface, multifocal 4.1 (max) Fulfills quantitative criteria for viable neoplasm NON-INDEX LESION SIZE SUV INTERPRETATION Left adrenal gland 1.3 Quantitative criteria for viable neoplasm are not fulfilled TECHNIQUE: Following the intravenous administration of 12.97 mCi of F-18 deoxyglucose via the right antecubital fossa, multiplanar image acquisitions of the neck, chest, abdomen and pelvis to level of mid thigh, obtained at one hour post radiopharmaceutical administration contemporaneously interpreted with the current CT of the neck, chest, abdomen and pelvis to level of mid thigh, dated 05/23/20 via coregistration reveal: SERUM GLUCOSE LEVEL: 94 mg/dl. HEIGHT: 72 inches. WEIGHT: 227 lbs. FINDINGS: 1. An increase in FDG uptake is defined in the left lower medial lung-left lower lobe adjacent to the left ventricular myocardium generating a calculated maximal standard uptake value of 4.2. The maximal axial diameter of the corresponding metabolic-morphologic abnormality corresponding to consolidation-mass on review of CT of the chest dated 05/23/20 in the analogous location is 31.6-mm (transverse) x 49.3-mm (AP). 2. An increase in glucose metabolism is defined throughout the left hemithorax at the pleural interface generating a calculated maximal standard uptake value of 4.1. Corresponding pleural thickening is noted in the analogous locations on review of CT of the chest dated 05/23/20. 3. Normal physiologic distribution of the radiopharmaceutical is apparent in the hepatic (2.9) and splenic parenchyma, both renal units, bladder and visualized intestinal tract. The visualized portion of the cerebral cortical-subcortical structures demonstrate symmetric and preserved glucose metabolism. Mild increased glucose concentration is noted in an enlarged partially calcified left adrenal gland with a calculated maximal standard uptake value of 1.3. Quantitative criteria for neoplasia are not fulfilled. Pertinent CT findings are as follows: CHEST: The left hemithorax pleural effusion reveals no evidence of increased tracer uptake as previously described. Right and left axillary and scattered mediastinal soft tissue is non-glucose avid. There is a shift of the mediastinal structures to the left of the midline. There are no parenchymal densities-nodules defined within the right lung field. Calcified thoracic perihilar soft tissue is non-glucose avid. ABDOMEN AND PELVIS: There is atherosclerotic calcification defined in the abdominal aorta without evidence of dilatation-aneurysm formation. Abdominal-pelvic arterial calcification is demonstrated. Colonic diverticulosis is encountered without evidence of diverticulitis. Bilateral fat containing inguinal hernias are observed. Right and left inguinal soft tissue densities with fatty hilus reveal no evidence of increased tracer uptake. Dystrophic calcification is manifest within the base of the prostate gland involving the peripheral zone to the right of the midline without evidence of increased fluorine labeled glucose uptake. Surgical clip placement is defined in the bilateral lower anterior hemipelvis. SKELETAL: Degenerative changes are noted in the cervical, thoracic and lumbar spine without evidence of increased radiopharmaceutical concentration. There is diffuse demineralization identified throughout the axial skeletal structures. There are no sclerotic, mixed sclerotic-lytic and/or primarily lytic changes noted on review of the appendicular, axial skeletal structures. PET/PET/CT Tumor Base -Thigh Subs IMPRESSION: 1. ABNORMAL EXAMINATION INDICATIVE OF MALIGNANT-METASTATIC VIABLE NEOPLASM. 2. Increased glucose concentration observed in the left hemithorax at the pleural interface fulfills quantitative criteria for viable pleural neoplasm. (Singh, et al, Chest 122:1918, 2002). 3. Enhanced tracer uptake observed in the left lower medial lung-left lower lobe corresponding to consolidation-mass fulfills quantitative criteria for viable neoplasm with single point technique. 4. The prominent sized left adrenal gland manifests mild increased tracer uptake. Quantitative criteria for viable neoplasm are not fulfilled. (Francisco and Matt, Journal of Nuclear Medicine 42:151 P2002 Cl, Journal of Nuclear Medicine 45:1340, 2004). Electronic Signature Rmaan Sanchez D.O. Accurate Quantification of SUVs for this report are calculated using the exclusive [employer]? Technology.??Exclusive U.S. Patent Accuquan? Technology (U.S. Patent No. [id number], [id number]). Electronically Signed: Raman Sanchez DO at 15:48 EDT Tel , Service support ,
== END ==
PROVIDERS: PCP Family Medicine Geriatric Medicine; Referring Provider Internal Medicine Hematology & Oncology; Visit Provider Internal Medicine Hematology & Oncology
DX: C34.32 Malignant neoplasm of lower lobe, left bronchus or lung (principal); J91.0 Malignant pleural effusion
CPT/HCPCS: 78815; A9552

== ENCOUNTER 2020-05-26 10:37 | Day surgery (SDC) | payer OTHER, SELFPAY ==
[2019-01-06 08:53] VITALS: BMI 30.2
[2020-05-26 11:15] VITALS: BP 127/89; PULSE 79; RESP 16; TEMP 36.8; O2SAT 98; BMI 30.8
[2020-05-26] MEDS: Lactated Ringers 1,000 ML 100 ML IV (11:15)
--- NOTE | 2020-05-26 12:29 | PCM.OPRPT ---
Problem List (1) Vascular catheter fitting or adjustment Status: Acute Report of Operation Date of Procedure: 05/26/20 Pre-Operative Diagnosis: Vascular fitting and adjustment Post-Operative Diagnosis: Same Surgery/Procedure Performed:: Right IJ PowerPort Type of Anesthesia:: Local MAC Anesthesiologist: Tam Wong Estimated Blood Loss (mL): < 25 cc Description of Procedure: Patient was brought into the operating room. Placed in the supine position under excellent MAC anesthetic I ultrasound the right neck identify the internal jugular vein marked the neck and chest appropriately. The neck and chest were then sterilely prepped and draped in usual fashion. Local was injected into the neck. Seldinger's technique was used to gain access to the internal jugular vein. Guidewire was placed over the needle the needle was removed. Fluoroscopy was used to confirm proper placement of the guidewire. I injected local onto the chest. Incision was made. Electrocautery was used to create a pocket for the port. I made an incision in the neck. Dilator and sheath were placed over the guidewire removing the dilator and guidewire. Single-lumen catheter was placed into the sheath the sheath was removed. Fluoroscopy was used to confirm proper length. I injected local underneath the skin above the collarbone placed the tunneler from the chest over the collarbone up into the neck and brought the catheter back down. I cut the catheter to length. I placed the locking hub on the catheter. With the port onto the catheter and secured the 2 with a locking hub. It flushed and irrigated well. It was flushed with 5 cc of Hepflush. It was sutured into the pocket created with 2 sutures of 2-0 Prolene. Skin incisions were brought together with deep dermal stitches of 3-0 Vicryl. Dermabond was applied. Sterile dressings were applied. The patient tolerated the procedure well. Portable chest x-ray was ordered. - Admit VTE Documentation VTE Present on Admission: No VTE Mechan Device Prophylaxis: SCD's VTE Pharm Prophylaxis ordered?: No Reason prophylaxis not ordered:: Treatment Not Indicated
[2020-05-26] MEDS: Cefazolin 2 GM in 0.9% Normal Saline 100 ML IV (13:12)
[2020-05-26] MEDS: Lidocaine 1% (30 ml sdv) 30 ML Vial (13:30)
[2020-05-26] MEDS: Bupivacaine Mpf 0.5% 30 ML VIAL (13:30)
--- NOTE | 2020-05-26 13:50 | DCINST_ITS ---
Discharge Diet: No Restrictions - Pain medication may cause nausea. You should typically eat light foods as you take your pain medication. Discharge Activity: May Shower - with the bandage in place 1-2 days after surgery. DO NOT SHOWER WHEN YOUR PORT IS ACCESSED. Additional Activity Instructions:: May not drive, work with heavy equipment, or sign legal documents for [address] if you are no longer taking narcotic pain medications. You may drive when you are no longer taking pain medications. Additional Dressing/Incision Instructions:: Leave the bandage on for 2-3 days. When you remove the bandage, leave the steri-strips intact until they fall off. Allergies/Adverse Reactions: Allergies Sulfa (Sulfonamide Antibiotics) Allergy (Verified 05/24/20 11:29) Rash Medications to take at Discharge Omeprazole [Prilosec] 40 mg PO DAILY 03/09/15 losartan 25 mg tablet 25 mg PO QDAY #30 tab 08/25/17 albuterol sulfate 2.5 mg INHALATION Q4H PRN #180 ml 09/30/17 Carvedilol [Coreg] 3.125 mg PO BID 05/24/20 Fluticasone/Umeclidin/Vilanter [Trelegy Ellipta 100-62.5-25] 1 puff IH DAILY 05/24/20 Primary Care Physician: Silvano Childers Chi, MD [Primary Care Provider] - Test Results: Test results from this visit will be discussed in further detail at your follow- up appointment, if applicable. Please Follow Up With: Maxine Ramirez, ROXIE-C - [phone] When: Please plan to follow up in 7 days in the office.
--- NOTE | 2020-05-26 13:52 | RAD_ITS ---
STUDY: X-RAY CHEST REASON FOR EXAM: Male, 59 years old. Port placement. TECHNIQUE: Single AP portable view of the chest. COMPARISON: Comparison is made with prior study dated 04/26/2020. FINDINGS: A right-sided Port-A-Cath has been placed. The tip is at the junction of the superior vena cava and right atrium. Increasing left pleural effusion with volume loss in the left hemithorax and left basilar infiltrate. The right lung is clear. Normal size heart. Normal mediastinum and angelica. Normal visualized pulmonary arteries. Normal visualized aortic arch and descending thoracic aorta. Normal visualized thoracic spine. Normal visualized ribs, clavicles, and shoulders. There is no demonstrated abnormality of the visualized soft tissue structures of the upper abdomen. RAD/CXR for Line Placement IMPRESSION: Progressive left pleural effusion with left basilar infiltration and volume loss in the left hemithorax. The tip of the right gamaliel catheter is at the junction of the superior vena cava and right atrial. Electronically Signed: Armando Sheets MD at 14:28 EDT , Service support ,
[2020-05-26 13:54] VITALS: BP 126/87; BP 127/89; PULSE 83; RESP 18; TEMP 36.8; O2SAT 94
[2020-05-26 14:00] VITALS: BP 127/87; BP 127/89; PULSE 83; RESP 18; O2SAT 95
[2020-05-26 14:05] VITALS: BP 123/89; BP 127/89; PULSE 78; RESP 18; O2SAT 96
[2020-05-26 14:13] VITALS: BP 121/82; BP 127/89; PULSE 75; RESP 18; TEMP 36.6; O2SAT 94
[2020-05-26 15:00] VITALS: BP 125/76; BP 127/89; PULSE 71; RESP 16; TEMP 36.7; O2SAT 96
== END 2020-05-26 15:10 | disposition home or self-care (01) ==
LOC: SDC 10:38 → AC 10:40
PROVIDERS: PCP Family Medicine Geriatric Medicine; Referring Provider Surgery; Visit Provider Surgery
PROC: (CPT 36561; principal; 2020-05-26 12:45)
DX: Z45.2 Encounter for adjustment and management of vascular access device (principal); C34.90 Malignant neoplasm of unspecified part of unspecified bronchus or lung; K21.9 Gastro-esophageal reflux disease without esophagitis; Z87.891 Personal history of nicotine dependence
CPT/HCPCS: 36561; 71045; 77001; 87426; C9803; J7120; C1788

== ENCOUNTER → 2020-06-08 13:18 | Outpatient (CLI) | payer OTHER, SELFPAY ==
[2020-05-26 11:15] VITALS: BMI 30.8
--- NOTE | 2020-06-08 13:22 | US_ITS ---
PROCEDURE: ULTRASOUND GUIDED THORACENTESIS. DATE: 06/08/2020. INDICATION: Male, 59 years old. Left pleural effusion PHYSICIAN: Armando Sheets M.D. PROCEDURE: The risks, benefits, and alternatives to the procedure were explained to the ration. The specific risks of bleeding, infection, and pneumothorax requiring chest tube insertion were discussed and accepted. Written informed consent was obtained. Ultrasonographic evaluation of the left lower pleural space was carried out. An adequate pocket was identified. The patient was placed in the sitting, upright position. The overlying skin was prepped and draped in sterile fashion. 1% lidocaine was administered subcutaneously for local anesthesia. Under ultrasound guidance, a 5French thoracentesis needle/catheter system was advanced into the left posterior lower pleural fluid collection. Approximately 300 mL of direct yellow fluid was drained. The catheter was removed, and a sterile dressing was applied. The patient tolerated the procedure well. A chest x-ray was ordered. US/Thoracentesis W US IMPRESSION: Ultrasound-guided left thoracentesis. Electronically Signed: Armando Sheets MD at 14:13 EDT , Service support ,
[2020-06-08 13:37] VITALS: BP 132/74; BP 138/79; BP 141/77; PULSE 84; PULSE 86; PULSE 87; RESP 18; TEMP 37.2; O2SAT 96; O2SAT 97
--- NOTE | 2020-06-08 14:00 | RAD_ITS ---
STUDY: X-RAY CHEST REASON FOR EXAM: Male, 59 years old. thora TECHNIQUE: AP inspiration and expiration views. COMPARISON: Comparison is made with prior study dated 05/26/2020. FINDINGS: A right-sided portacatheter is seen with the tip at the junction of the superior vena cava and right atrium. Status post left thoracentesis. No evidence of pneumothorax. Stable appearance of the left pleural thickening. RAD/Chest Insp/Exp 2 View IMPRESSION: No evidence of pneumothorax following the left thoracentesis. Electronically Signed: Armando Sheets MD at 14:11 EDT , Service support ,
== END ==
PROVIDERS: PCP Family Medicine Geriatric Medicine; Referring Provider Internal Medicine Pulmonary Disease; Visit Provider Internal Medicine Pulmonary Disease
DX: R06.00 Dyspnea, unspecified (principal); R07.9 Chest pain, unspecified
CPT/HCPCS: 32555; 71046

== ENCOUNTER → 2020-06-30 11:32 | Outpatient (CLI) | payer OTHER, SELFPAY ==
--- NOTE | 2020-06-30 11:37 | RAD_ITS ---
STUDY: X-RAY CHEST REASON FOR EXAM: Male, 59 years old. COUGH TECHNIQUE: PA and lateral views of the chest. COMPARISON: 06/08/2020 FINDINGS: Right internal jugular chest port which is unchanged. The lungs are clear and expanded. No change in the large left-sided pleural effusion or pleural scarring extending over the apex of the left lung. Normal size heart. Normal mediastinum and angelica. Normal visualized pulmonary arteries. Normal visualized aortic arch and descending thoracic aorta. Normal visualized thoracic spine. Normal visualized ribs, clavicles, and shoulders. There is no demonstrated abnormality of the visualized soft tissue structures of the upper abdomen. RAD/Chest PA and Lateral IMPRESSION: No change from 06/08/2020. Electronically Signed: Raman Mckinley MD at 7:35 EDT Tel , Service support ,
== END ==
PROVIDERS: PCP Family Medicine Geriatric Medicine; Referring Provider Family Medicine Geriatric Medicine; Visit Provider Family Medicine Geriatric Medicine
DX: R05 Cough (principal)
CPT/HCPCS: 71046

== ENCOUNTER → 2020-07-03 16:04 | Outpatient (CLI) | payer OTHER, SELFPAY | PROVIDERS: PCP Family Medicine Geriatric Medicine; Referring Provider Family Medicine Geriatric Medicine; Visit Provider Family Medicine Geriatric Medicine | DX: R05 Cough (principal) | CPT/HCPCS: 87633; 87635; C9803; U0002 ==

== ENCOUNTER → 2020-07-26 14:06 | Outpatient (CLI) | payer OTHER, SELFPAY ==
--- NOTE | 2020-07-26 14:10 | US_ITS ---
STUDY: LEFT THORACENTESIS REASON FOR EXAM: Male, 59 years old. PLEURAL EFFUSION TECHNIQUE: Ultrasound guided COMPARISON: Chest x-ray from earlier today FINDINGS: After informed consent was obtained, patient was placed in the sitting upright position leaning against a bedside table. Appropriate site for left thoracentesis was determined using sonographic guidance. The area was prepped and draped in a sterile manner. Sterile technique was employed including handwashing and wearing gloves. 2% XYLOCAINE was used as local anesthetic Under sonographic guidance, a valved Sunflower drainage catheter was advanced into the left hemithorax but no fluid was returned. At this point in the procedure, patient''s attending physician, Dr. Pelletier wished to perform an additional attempt. US/Thoracentesis W US IMPRESSION: Unsuccessful thoracentesis Electronically Signed: Lopez Fernandez MD at 7:40 EDT , Service support ,
[2020-07-26 14:25] VITALS: BP 127/78; BP 132/82; BP 134/79; BP 139/81; BP 144/89; PULSE 83; PULSE 84; PULSE 87; PULSE 89; PULSE 91; RESP 16; O2SAT 95; O2SAT 96; O2SAT 97; O2SAT 98
--- NOTE | 2020-07-26 15:19 | RAD_ITS ---
STUDY: X-RAY CHEST REASON FOR EXAM: Male, 59 years old. Post thoracentesis TECHNIQUE: PA and lateral views of the chest. COMPARISON: 06/30/2020 FINDINGS: There is a right-sided [id number] with its tip in the SVC. There is stable large left pleural effusion extending to the left apex. There is large left basilar retrocardiac pleural-parenchymal consolidation. The right lung is clear. No right pleural effusion. No pneumothorax. The cardiac silhouette is obscured and there is left-sided mediastinal shift. Normal visualized thoracic spine. Normal visualized ribs, clavicles, and shoulders. There is no demonstrated abnormality of the visualized soft tissue structures of the upper abdomen. RAD/Chest PA and Lateral IMPRESSION: Stable large left pleural effusion extending to the left apex. There is large left basilar retrocardiac pleural-parenchymal consolidation which may represent pleural effusion, atelectasis and/or pneumonia in. The right lung is clear. No right pleural effusion. No pneumothorax. Electronically Signed: Heladio Pleitez MD at 16:42 EDT Tel , Service support ,
== END ==
LOC: US 14:08
PROVIDERS: PCP Family Medicine Geriatric Medicine; Referring Provider Internal Medicine Pulmonary Disease; Visit Provider Internal Medicine Pulmonary Disease
DX: J90 Pleural effusion, not elsewhere classified (principal)
CPT/HCPCS: 32555; 71046

== ENCOUNTER → 2021-07-04 | Outpatient (CLI) | payer OTHER, SELFPAY ==
--- NOTE | 2021-07-04 10:30 | PET_ITS ---
PROCEDURE: WHOLE BODY PET/CT SCAN, MID SKULL TO MID THIGH REASON FOR EXAM: Lung neoplasm, restaging COMPARISON EXAMINATION: 05/23/2020. TECHNIQUE: Following the intravenous administration of 13.6 mCi of F-18 the deoxyglucose, multiplanar imaging acquisitions of the neck, chest, abdomen/pelvis to the mid thigh, obtained at 1 hour post radiopharmaceutical administration. Interpretation is with co-registeration of similar anatomic distribution of CT. Findings: Normal and physiologic distribution of radioisotope identified in the expected intensity of the hepatic and splenic parenchyma, urinary tract and gastrointestinal structures. There is gross anatomic distribution of the intracranial contents. Injection sites in the bilateral gluteal subcutaneous fat with expected minimal FDG activity. INDEX LESION SIZE SUV INTERPRETATION: 1. 2.9 x 7.0 cm (previously measured 3.4 x 6.9 cm) masslike consolidation of the left lower lobe with abnormal FDG activity with SUV measuring 11.4 (previously measured 4.2). 2. Multifocal linear and punctate FDG activity of the left pleural surface, predominantly in the left lung base with SUV measuring up to. Increased number of pleural lesions as compared to the prior study. For instance, focal pleural-based nodule along the medial left apex measuring 1.1 cm on image 123 of series 201 with SUV 6.7, not evident on the prior study. Focal activity of the anterior left pleural surface on image 174 measuring 8.5 mm is also new with abnormal FDG activity (SUV 5.0). 3. Small, round lymph node lateral to the aortic arch on image 156 of series 201 measures 7.1 mm and is similar in size. However, there is focal increased FDG activity (SUV 5.0), not previously detected. CT portion of the exam: Right chest port present with catheter tip extending to the lower SVC. No additional pulmonary nodule/mass. Left pleural effusion has decreased in volume. Normal heart size. No pericardial thickening. Normal mediastinum. Normal hilar regions. Normal unenhanced pulmonary arteries. Normal aorta arch and descending thoracic aorta. There is decreased attenuation of the liver consistent with steatosis. Normal gallbladder and extrahepatic biliary system. Normal spleen. Normal pancreas. Mixed density (with fat and calcification) of the left adrenal gland is stable (without abnormal FDG activity) is stable, compatible with myelolipoma or benign adenoma. Normal right kidney. Normal left kidney. Normal visualized stomach. Normal small intestine. There are multiple colonic diverticula consistent with diverticulosis. There is non-visualization of the appendix. Normal abdominal aorta. Normal inferior vena cava. Normal urinary bladder. No lytic or sclerotic bone lesions. Operative changes of the lower abdomen. PET/PET/CT Tumor Base -Thigh Subs IMPRESSION: Since 05/23/2020, unfavorable change/disease progression. 1. ABNORMAL EXAMINATION. Increased number of pleural metastasis. 7 mm prevascular mediastinal lymph node now meets criteria for viable neoplasm/metastasis (similar size but new FDG activity). Similar size but increased FDG activity of left lower lobe mass. 2. Chronic changes, as detailed above. Electronically Signed: Alexandr Hernandez MD ([place]) at 9:46 EDT ,
== END | disposition home or self-care (01) ==
LOC: ONC 09:54
PROVIDERS: PCP Family Medicine Geriatric Medicine; Referring Provider Internal Medicine Hematology & Oncology; Visit Provider Internal Medicine Hematology & Oncology
DX: C34.90 Malignant neoplasm of unspecified part of unspecified bronchus or lung (principal); J91.0 Malignant pleural effusion
CPT/HCPCS: 78814; 78815; A9588